=== PATIENT | female | born 1965 | race Two or more races ===

== ENCOUNTER → 2018-07-09 | Outpatient (CLI) | payer OTHER ==
[2018-07-10 09:55] LABS: OCCULT BLOOD NEGATIVE (NEGATIVE)
== END | disposition home or self-care (01) ==
LOC: LAB 15:50
PROVIDERS: ATTEND Nurse Practitioner Family
DX: D64.9 Anemia, unspecified (principal)
CPT/HCPCS: 82272

== ENCOUNTER → 2019-03-29 | Outpatient (CLI) | payer OTHER ==
[2019-03-29 15:35] LABS: BASOPHILS # (AUTO) 0.03 x10^3/uL (0-0.1); BASOPHILS % (AUTO) 1 % (0-1); EOSINOPHILS # (AUTO) 0.04 x10^3/uL (0-0.4); EOSINOPHILS % (AUTO) 1 % (1-7); LYMPHOCYTES # (AUTO) 1.63 x10^3/uL (1-3.4); LYMPHOCYTES % (AUTO) 32 % (22-44); MD NO; MEAN CORPUSCULAR HEMOGLOBIN 31.5 pg (27.0-34.8); MEAN CORPUSCULAR HGB CONC 32.8 g/dL (32.4-35.8); MEAN CORPUSCULAR VOLUME 95.9 fL (80-100); MEAN PLATELET VOLUME 8.1 fL (7.4-10.4); MONOCYTES % (AUTO) 8 % (2-9); NEUTROPHILS # (AUTO) 3.02 x10^3/uL (1.8-6.8); NEUTROPHILS % (AUTO) 59 % (42-75); PLATELET COUNT 235 x10^3/uL (130-400); RED BLOOD COUNT 4.42 x10^6/uL (3.82-5.3); RED CELL DISTRIBUTION WIDTH 12.4 % (9.6-15.2)
== END | disposition home or self-care (01) ==
LOC: LAB 15:18
PROVIDERS: ATTEND Nurse Practitioner Family
DX: R04.0 Epistaxis (principal)
CPT/HCPCS: 36415; 85025; 86803; 87806; G0475

== ENCOUNTER 2019-08-12 07:52 | Outpatient (CLI) | payer OTHER ==
[2019-08-12 08:27] LABS: CHOL/HDL RATIO 4.2; LDL/HDL RATIO 2.6 (0.5-3.0)
[2019-08-12 15:55] LABS: FREE T4 (FREE THYROXINE) 1.16 ng/dL (0.76-1.46)
[2019-08-13 07:53] LABS: OCCULT BLOOD NEGATIVE (NEGATIVE)
[2019-08-16] MEDS ORDERED: OXYTOCIN 10 UNITS/ML, 1ML ONE ×2 (20:23→20:37)
[2019-08-16] MEDS ORDERED: FENTANYL PF 100 MCG/2ML ONE (20:24)
[2019-08-16] MEDS ORDERED: LIDOCAINE-MPF 2% ,5ML ONE (20:26)
[2019-08-16] MEDS ORDERED: KETOROLAC 30 MG/1 ML ONE (20:27)
== END 2019-08-12 23:59 | disposition home or self-care (01) ==
LOC: LAB 07:52
PROVIDERS: ATTEND Nurse Practitioner Family
DX: Z12.11 Encounter for screening for malignant neoplasm of colon (principal); E03.9 Hypothyroidism, unspecified
CPT/HCPCS: 36415; 80061; 82272; 82306; 84439; 84443

== ENCOUNTER → 2019-10-25 | Outpatient (CLI) | payer OTHER ==
[2019-10-25 11:01] LABS: ALBUMIN 3.9 g/dL (3.4-5.0); ANION GAP 7 mmol/L (5-15); CALCIUM 8.7 mg/dL (8.5-10.1); CHLORIDE 108 mmol/L (98-107); CHOLESTEROL, TOTAL 212 mg/dL (140-239)
[2019-10-25 11:11] LABS: ALANINE AMINOTRANSFERASE 37 U/L (12-78); ALKALINE PHOSPHATASE 70 U/L (45-117); BILIRUBIN,TOTAL 0.7 mg/dL (0.2-1.0); CHOL/HDL RATIO 4.2; CREATININE 0.85 mg/dL (0.55-1.02); HDL CHOL % 24 % (28-40); HDL CHOLESTEROL (DIRECT) 50 mg/dL (40-60); LDL CHOLESTEROL,CALCULATED 135 mg/dL (54-169); LDL/HDL RATIO 2.7 (0.5-3.0); TOTAL PROTEIN 7.3 g/dL (6.4-8.2); TRIGLYCERIDES 135 mg/dL (50-200); VLDL CHOLESTEROL 27 mg/dL (0-25)
== END | disposition home or self-care (01) ==
LOC: LAB 10:37
PROVIDERS: ATTEND Specialist
DX: Z00.00 Encounter for general adult medical examination without abnormal findings (principal); Z13.220 Encounter for screening for lipoid disorders
CPT/HCPCS: 36415; 80053; 80061; 82306; 84443

== ENCOUNTER 2019-11-29 10:38 | Outpatient (CLI) | payer OTHER | END 2019-11-29 23:59 | disposition home or self-care (01) | LOC: CFH 10:38 | PROVIDERS: ATTEND Nurse Practitioner Family | DX: Z12.31 Encounter for screening mammogram for malignant neoplasm of breast (principal); E03.9 Hypothyroidism, unspecified; D64.9 Anemia, unspecified; N64.89 Other specified disorders of breast | CPT/HCPCS: 77063; 77067 ==

== ENCOUNTER 2020-02-19 12:20 | Emergency (ER) | payer OTHER ==
[~2020-02-19] VITALS: Ht 165.1 cm; Wt 60.0 kg
[2020-02-19] MEDS ORDERED: ONDANSETRON ODT 4 MG ONE ×2 (12:30→14:13)
[2020-02-19] MEDS ORDERED: ONDANSETRON ODT 4 MG PO ONE ×2 (13:00→14:30)
[2020-02-19] MEDS ORDERED: MECLIZINE CHEWABLE 25 MG TAB PO ONE (13:00)
--- NOTE | 2020-02-19 13:11 | NUR ---
Report from Jl FABIAN. Pt resting in bed, SANDRA. sound effects technician at bedside to collect blood.
[2020-02-19 13:14] LABS: BASOPHILS # (AUTO) 0.03 x10^3/uL (0-0.1); BASOPHILS % (AUTO) 1 % (0-1); EOSINOPHILS # (AUTO) 0.09 x10^3/uL (0-0.4); EOSINOPHILS % (AUTO) 2 % (1-7); LYMPHOCYTES # (AUTO) 1.97 x10^3/uL (1-3.4); LYMPHOCYTES % (AUTO) 37 % (22-44); MD NO; MEAN CORPUSCULAR HEMOGLOBIN 31.9 pg (27.0-34.8); MEAN CORPUSCULAR HGB CONC 33.8 g/dL (32.4-35.8); MEAN CORPUSCULAR VOLUME 94.3 fL (80-100); MEAN PLATELET VOLUME 7.9 fL (7.4-10.4); MONOCYTES # (AUTO) 0.32 x10^3/uL (0.2-0.8); MONOCYTES % (AUTO) 6 % (2-9); NEUTROPHILS # (AUTO) 2.95 x10^3/uL (1.8-6.8); NEUTROPHILS % (AUTO) 55 % (42-75); PLATELET COUNT 223 x10^3/uL (130-400); RED BLOOD COUNT 4.37 x10^6/uL (3.82-5.3); RED CELL DISTRIBUTION WIDTH 12.4 % (9.6-15.2)
[2020-02-19] MEDS ORDERED: MECLIZINE CHEWABLE 25 MG TAB ONE (13:20)
--- NOTE | 2020-02-19 13:22 | NUR ---
Pt medicated per DEC. Pt taken to CT via gurney and school transportation director.
[2020-02-19 13:26] LABS: ALBUMIN 3.9 g/dL (3.4-5.0); ANION GAP 5 mmol/L (5-15); CALCIUM 9.2 mg/dL (8.5-10.1); CHLORIDE 107 mmol/L (98-107); CREATININE 0.76 mg/dL (0.55-1.02)
--- NOTE | 2020-02-19 14:14 | NUR ---
Pt states she is feeling less dizzy but is still nauseated. Discussed pt condition and VS with Dr. Montague. Orders received for Zofran ODT. Pt medicated per order, POC discussed. Pt denies other needs.
[2020-02-19] MEDS ORDERED: DIAZEPAM 5 MG TABLET PO ONE (14:30)
[2020-02-19] MEDS ORDERED: DIAZEPAM 5 MG TABLET ONE (14:43)
--- NOTE | 2020-02-19 14:45 | NUR ---
Pt states nausea resolved after medications. Pt medicated with Valium for continued dizziness. POC discussed. Pt denies other needs.
--- NOTE | 2020-02-19 15:37 | NUR ---
Pt back from MRI, states she is feeling better. Dr. Montague aware.
[2020-02-19 17:15] VITALS: BP 115/47
== END 2020-02-19 17:17 | disposition home or self-care (01) ==
LOC: ED 15:29
DX: R42 Dizziness and giddiness (principal); R11.0 Nausea
CPT/HCPCS: 36415; 70450; 70551; 80048; 82040; 82962; 85025; 93005; 99285; Q0162

== ENCOUNTER → 2020-12-13 | Outpatient (CLI) | payer OTHER ==
[2020-12-13 08:08] LABS: ALANINE AMINOTRANSFERASE 37 U/L (12-78); CALCIUM 8.8 mg/dL (8.5-10.1); CREATININE 0.71 mg/dL (0.55-1.02)
[2020-12-13 08:18] LABS: ALKALINE PHOSPHATASE 72 U/L (45-117); BILIRUBIN,TOTAL 0.5 mg/dL (0.2-1.0); TOTAL PROTEIN 6.9 g/dL (6.4-8.2)
[2020-12-13 08:23] LABS: ANION GAP 8 mmol/L (5-15); CHLORIDE 111 mmol/L (98-107)
[2020-12-13 09:16] LABS: FREE T4 (FREE THYROXINE) 1.49 ng/dL (0.76-1.46)
== END | disposition home or self-care (01) ==
LOC: LAB 07:27
PROVIDERS: ATTEND Nurse Practitioner Family
DX: R63.5 Abnormal weight gain (principal); E55.9 Vitamin D deficiency, unspecified; E03.9 Hypothyroidism, unspecified
CPT/HCPCS: 36415; 80053; 84439; 84443

== ENCOUNTER → 2021-04-23 | Outpatient (CLI) | payer OTHER | END | disposition home or self-care (01) | LOC: CFH 14:29 | PROVIDERS: ATTEND Nurse Practitioner Family | DX: Z12.31 Encounter for screening mammogram for malignant neoplasm of breast (principal) | CPT/HCPCS: 77063; 77067 ==